=== PATIENT | male | born 1985 | race American Indian/Alaskan Native ===

== ENCOUNTER 2018-01-01 18:23 | Emergency (ER) | payer OTHER ==
[2018-01-01 18:33] VITALS: BP 137/101
--- NOTE | 2018-01-01 19:06 | Emergency Department Report ---
ED Lower Extremity HPI - General Chief Complaint: Extremity Injury, Lower Stated Complaint: RIGHT FOOT INJURY Time Seen by Provider: 01/01/18 18:57 Source: patient Mode of arrival: Ambulatory Limitations: No Limitations - History of Present Illness Initial Comments: This is a 32-year-old -[place] male that presents with right foot pain. Patient reports walking upstairs at home and tripping over a dog around 1:00 today. Patient reports initially feeling okay but about 30 minutes and he was unable to bear weight so right foot. He reports pain as 8 out of 10 on pain scale with ambulating. Pain is on the lateral aspect of right foot. He has tried applying ice to the injury area with no improvement of pain. He has not tried taking anything [id number]. He denies LOC, swelling, redness, deformity, and numbness or tingling. Complaint: foot injury (right foot) -: Gradual (1 to 3 hours) Injury: Foot: Right (pain at lateral aspect) Type of Injury: unknown Severity: moderate Severity scale (0 -10): 8 Improves With: nothing Worsens With: weight bearing, movement, palpation Context: walking Associated Symptoms: unable to bear weight Treatments Prior to Arrival: cold therapy - Related Data Previous Rx's Medication Instructions Recorded Last Taken Type Naproxen [Naprosyn] 500 mg PO BID PRN #20 tablet 01/01/18 Unknown Rx Tizanidine HCl [Zanaflex] 2 mg PO TID PRN #15 capsule 01/01/18 Unknown Rx Allergies Allergy/AdvReac Type Severity Reaction Status Date / Time No Known Allergies Allergy Unverified 01/01/18 18:32 ED Review of Systems ROS: Stated complaint: RIGHT FOOT INJURY Other details as noted in HPI Constitutional: denies: chills, fever Respiratory: denies: cough, shortness of breath, wheezing Cardiovascular: denies: chest pain, palpitations Gastrointestinal: denies: abdominal pain, nausea, diarrhea Musculoskeletal: arthralgia (right lateral foot pain) Skin: denies: rash, lesions Neurological: denies: headache, weakness, numbness, paresthesias Psychiatric: denies: anxiety, depression ED Past Medical Hx - Past Medical History Previous Medical History?: Yes Hx Hypertension: Yes - Surgical History Past Surgical History?: No - Social History Smoking Status: Current Every Day Smoker Substance Use Type: Marijuana - Medications Home Medications: Home Medications Medication Instructions Recorded Confirmed Last Taken Type Naproxen [Naprosyn] 500 mg PO BID PRN #20 tablet 01/01/18 Unknown Rx Tizanidine HCl [Zanaflex] 2 mg PO TID PRN #15 capsule 01/01/18 Unknown Rx ED Physical Exam - General Limitations: No Limitations General appearance: alert, in no apparent distress - Respiratory Respiratory exam: Present: normal lung sounds bilaterally. Absent: respiratory distress, wheezes, rales, rhonchi, stridor, accessory muscle use - Cardiovascular Cardiovascular Exam: Present: regular rate, normal rhythm, normal heart sounds. Absent: systolic murmur, diastolic murmur, rubs, gallop - Extremities Exam Extremities exam: Present: normal inspection. Absent: normal capillary refill, calf tenderness - Expanded Lower Extremity Exam Right Hip exam: Present: normal inspection, full ROM Upper Leg exam: Present: normal inspection, full ROM Knee exam: Present: normal inspection, full ROM Lower Leg exam: Present: normal inspection, full ROM Ankle exam: Present: normal inspection. Absent: laceration, ecchymosis, dislocation, erythema Foot/Toe exam: Present: tenderness (tenderness around the lateral side of the foot just inferior to the lateral malleolus, it is not red or swollen). Absent : swelling, ecchymosis, deformity, amputation, puncture wound, foreign body, calcaneal tenderness, tenderness at base of 5th metatarsal - Neurological Exam Neurological exam: Present: alert, oriented X3 - Psychiatric Psychiatric exam: Present: normal affect, normal mood - Skin Skin exam: Present: warm, dry, intact, normal color. Absent: rash ED Course Vital Signs 01/01/18 18:30 Temperature 97.6 F Pulse Rate 84 Respiratory 16 Rate Blood Pressure 137/101 O2 Sat by Pulse 98 Oximetry ED Lower Extremity MDM - Radiology Data Radiology results: report reviewed EXAM: XR FOOT 3+V RT HISTORY: pain, swelling COMPARISON: None available. FINDINGS: Three views of right foot obtained. Mild pes planus deformity. Bony structures are intact. Joint spaces are preserved. No acute fracture dislocation. IMPRESSION: No acute bony abnormality. - Medical Decision Making This is a 32 y.o. -[place] male that presents with right foot pain from tripping over a dog today. Patient was examined by me in the ER. Patient is nontoxic appearing. In no acute distress. Given [place] 7.5/325 mg by mouth once in the ER. Obtained x-ray of right foot. X-ray read by radiologist and no acute findings. Physical findings susceptible of muscle strain of right . Patient informed of results. Start naproxen and tizanidine for pain. Plan discussed with patient to discharge home and treat outpatient. He agrees with ER plan. Patient discharged home in stable condition. [facility]. Critical care attestation.: If time is entered above; I have spent that time in minutes in the direct care of this critically ill patient, excluding procedure time. ED Disposition Clinical Impression: Strain of intrinsic muscle and tendon at ankle and foot level, right foot, initial encounter, Foot pain, right Disposition: TO HOME OR SELFCARE Is pt being admited?: No Does the pt Need Aspirin: No Condition: Stable Instructions: Muscle Strain (ED), Ankle Exercises (GEN) Additional Instructions: Rest Use ice or heat on affected area for 20 minutes and off for 2 hours. Take pain medication as needed for pain. Don't drive or operate heavy machinery while taking muscle relaxers because they may cause drowsiness. Follow up with Primary Care Provider in 2-3 days. Prescriptions: Naproxen [Naprosyn] 500 mg PO BID PRN #20 tablet PRN Reason: Pain Tizanidine HCl [Zanaflex] 2 mg PO TID PRN #15 capsule PRN Reason: Muscle Spasm Referrals: [facility] [Outside] - 3-5 Days [facility] [Outside] - 3-5 Days [facility] [Outside] - 3-5 Days [facility] [Outside] - 3-5 Days Time of Disposition: 20:08 Print Language: INDONESIAN
[2018-01-01] MEDS ORDERED: NORCO 7.5/325 PO ONE (19:11)
--- NOTE | 2018-01-01 19:45 | XRay Report ---
FINAL REPORT EXAM: XR FOOT 3+V RT HISTORY: pain, swelling COMPARISON: None available. FINDINGS: Three views of right foot obtained. Mild pes planus deformity. Bony structures are intact. Joint spaces are preserved. No acute fracture dislocation. IMPRESSION: No acute bony abnormality.
== END 2018-01-01 20:15 | disposition home or self-care (01) ==
LOC: EDBD 18:23 → ED 18:23
DX: S96.911A Strain of unspecified muscle and tendon at ankle and foot level, right foot, initial encounter (principal); I10 Essential (primary) hypertension; F17.200 Nicotine dependence, unspecified, uncomplicated; F12.10 Cannabis abuse, uncomplicated; W01.0XXA Fall on same level from slipping, tripping and stumbling without subsequent striking against object, initial encounter; Y93.01 Activity, walking, marching and hiking; Y99.8 Other external cause status; Y92.89 Other specified places as the place of occurrence of the external cause
CPT/HCPCS: 99283